=== PATIENT | female | born 1970 | race Caucasian/White ===

== ENCOUNTER 2016-11-18 07:24 | Day surgery (SDC) | payer BC ==
[~2016-11-18] VITALS: Ht 170.2 cm; Wt 122.5 kg
--- NOTE | ~2016-11-18 | EGD ---
EGD REPORT [facility] [address] [address] NAME: ANNA COWART : [birth year] STATUS : REG [facility]#: [id number] AGE: 46 ADM/REG DATE : 11/18/16 MR#: [id number] REPORT SERV DATE: 11/18/16 DICTATED BY: VIKTORIA ARNDT DATE: 11/18/16 REPORT STATUS : Draft TRANSCRIBED BY: [facility] DATE: 11/18/16 Endoscopy Center Patient Name: Anna Cowart Date of : 1970 Attending MD: VIKTORIA ARNDT MD Procedure Date No Time: 11/18/2016 Procedure: Colonoscopy Indications: Colon cancer screening in patient at increased risk: Family history of colon polyps, Last colonoscopy: 2011 Referring MD: HENRIETTA KNIGHT MD Medicines: See the Anesthesia note for documentation of the administered medications Complications: No immediate complications. Procedure: Pre-Anesthesia Assessment: - ASA Grade Assessment: III - A patient with severe systemic disease. After I obtained informed consent, the scope was passed under direct vision. Throughout the procedure, the patient's blood pressure, pulse, and oxygen saturations were monitored continuously. The CF [id number] was introduced through the anus and advanced to the terminal ileum, with identification of the appendiceal orifice and IC valve. The colonoscopy was performed without difficulty. The patient tolerated the procedure well. The quality of the bowel preparation was adequate. Findings: The perianal and digital rectal examinations were normal. Internal hemorrhoids were found during retroflexion and were small. A sessile polyp was found in the transverse colon. The polyp was small in size. The polyp was removed with a cold biopsy forceps. Resection and retrieval were complete. Impression: - Internal hemorrhoids. - One small polyp in the transverse colon. Resected and retrieved. Recommendation: - Patient has a contact number available for emergencies. The signs and symptoms of potential delayed complications were discussed with the patient. Return to normal activities tomorrow. Written discharge instructions were provided to the patient. - Regular diet. - Continue present medications. - Repeat colonoscopy in 5 years for screening purposes. EGD REPORT [address] [address] NAME: ANNA COWART : [birth year] STATUS : REG [facility] [place] PAT#: [id number] AGE: 46 ADM/REG DATE : 11/18/16 MR#: [id number] REPORT SERV DATE: 11/18/16 DICTATED BY: VIKTORIA ARNDT DATE: 11/18/16 REPORT STATUS : Draft TRANSCRIBED BY: [employer] SERVICES DATE: 11/18/16 - FOR YOUR BIOPSY RESULTS: Please go to [email or web address] and register to receive your results via the portal. Your biopsy results will be posted there in about 7 to 10 days. IF you do not see result in 10 days, call office. Procedure Code(s): --- Professional --- 93202, Colonoscopy, flexible, proximal to splenic flexure; with biopsy, single or multiple Diagnosis Code(s): --- Professional --- K64.8, Other hemorrhoids D12.3, Benign neoplasm of transverse colon Z12.11, Encounter for screening for malignant neoplasm of colon Z83.71, Family history of colonic polyps CPT copyright 2013 [employer]. All rights reserved. The codes documented in this report are preliminary and upon transport specialist review may be revised to meet current compliance requirements. Viktoria Arndt MD VIKTORIA ARNDT MD 11/18/2016 9:58 AM This report has been signed electronically. Number of Addenda: 0 Note Initiated On: 11/18/2016 9:23 AM Scope Withdrawal Time 0 hours 7 minutes 4 seconds [id number] [place] [id number]
--- NOTE | ~2016-11-18 | EGD ---
EGD REPORT [facility] [address] [address] NAME: ANNA COWART : [birth year] STATUS : REG [facility] PAT#: [id number] AGE: 46 ADM/REG DATE : 11/18/16 MR#: [id number] REPORT SERV DATE: 11/18/16 DICTATED BY: VIKTORIA ARNDT DATE: 11/18/16 REPORT STATUS : Draft [facility]ANS[facility]IB[facility]: [facility] DATE: 11/18/16 Endoscopy Center Patient Name: Anna Cowart Date of : 1970 Attending MD: VIKTORIA ARNDT MD Procedure Date No Time: 11/18/2016 Procedure: Upper GI endoscopy Indications: Dysphagia, H/O eosinophilic esophagitis Referring MD: HENRIETTA KNIGHT MD Medicines: See the Anesthesia note for documentation of the administered medications Complications: No immediate complications. Procedure: Pre-Anesthesia Assessment: - ASA Grade Assessment: III - A patient with severe systemic disease. After obtaining informed consent, the endoscope was passed under direct vision. Throughout the procedure, the patient's blood pressure, pulse, and oxygen saturations were monitored continuously. The GIF [id number] was introduced through the mouth, and advanced to the second part of duodenum. The upper GI endoscopy was accomplished without difficulty. The patient tolerated the procedure well. Findings: The examined duodenum was normal. The entire examined stomach was normal. The cardia and gastric fundus were normal on retroflexion. A small hiatus hernia was present. Distal Esophageal Rings, Biopsies were taken with a cold forceps for histology. Proximal esophageal rings, Biopsies were taken with a cold forceps for histology. Impression: - Normal examined duodenum. - Normal stomach. - Hiatus hernia. - Distal Esophageal Rings Recommendation: - Patient has a contact number available for emergencies. The signs and symptoms of potential delayed complications were discussed with the patient. Return to normal activities tomorrow. Written discharge instructions were provided to the patient. - Soft diet. EGD REPORT [facility] [address] [place]. [address] NAME: ANNA COWART : [birth year] STATUS : REG [facility] PAT#: [id number] AGE: 46 ADM/REG DATE : 11/18/16 MR#: [id number] REPORT SERV DATE: 11/18/16 DICTATED BY: VIKTORIA ARNDT DATE: 11/18/16 REPORT STATUS : Draft TRANSCRIBED BY: [employer] SERVICES DATE: 11/18/16 - Continue present medications. - Rx for protonix 40mg every am sent to your pharmacy - Return to my office in 6 weeks. - Chew food very well Avoid milk, wheat products Procedure Code(s): --- Professional --- 20809, Esophagogastroduodenoscopy, flexible, transoral; with biopsy, single or multiple Diagnosis Code(s): --- Professional --- K44.9, Diaphragmatic hernia without obstruction or gangrene R13.10, Dysphagia, unspecified CPT copyright 2013 [employer]. All rights reserved. The codes documented in this report are preliminary and upon culinary intern review may be revised to meet current compliance requirements. Viktoria Arndt MD VIKTORIA ARNDT MD 11/18/2016 9:43 AM This report has been signed electronically. Number of Addenda: 0 Note Initiated On: 11/18/2016 9:31 AM Scope Withdrawal Time 0 hours 0 minutes 0 seconds [address] [place] [address]
[~2016-11-18 07:24] MED LIST: ARMOUR THYRO120 MG PO; EFFEXXR75 PO; EZFE 200200 MG PO; LOTE40 PO; SPIRO25 PO; VIACTIV PO; VIT B-SIX 50 MG50 MG PO
== END 2016-11-18 23:59 | disposition home or self-care (01) ==
LOC: DMU 07:24
PROVIDERS: Internal Medicine Gastroenterology
PROC: 0DB58ZX Excision of Esophagus, Via Natural or Artificial Opening Endoscopic, Diagnostic (ICD-10-PCS; principal; 2016-11-18 09:00)
PROC: 0DBL8ZX Excision of Transverse Colon, Via Natural or Artificial Opening Endoscopic, Diagnostic (ICD-10-PCS; 2016-11-18 09:00)
DX: Z12.11 Encounter for screening for malignant neoplasm of colon (principal); D12.3 Benign neoplasm of transverse colon; K64.8 Other hemorrhoids; K44.9 Diaphragmatic hernia without obstruction or gangrene; K20.9 Esophagitis, unspecified; I10 Essential (primary) hypertension; E66.01 Morbid (severe) obesity due to excess calories; G47.33 Obstructive sleep apnea (adult) (pediatric); E03.9 Hypothyroidism, unspecified; Z83.71 Family history of colonic polyps; Z88.0 Allergy status to penicillin; Z90.89 Acquired absence of other organs; Z98.890 Other specified postprocedural states; Z79.899 Other long term (current) drug therapy; Z68.41 Body mass index [BMI] 40.0-44.9, adult
CPT/HCPCS: 84703; 88305